=== PATIENT | female | born 1945 | race Caucasian/White ===

== ENCOUNTER 2018-01-31 13:10 | Inpatient (IN) | payer OTHER, MEDICAID ==
[~2018-01-31] VITALS: Ht 167.6 cm; Wt 58.5 kg
[2018-01-31 13:13] VITALS: BP 115/50
[2018-01-31] MEDS ORDERED: NACL 0.9% 1,000 ML IV SCH (14:18)
[2018-01-31] MEDS ORDERED: KETOROLAC 30 MG/ML VIAL IVP ONE (14:20)
[2018-01-31 15:10] LABS: BASOPHILS # (AUTO) 0.1 K/uL (0.00-0.22); BASOPHILS % (AUTO) 0.6 % (0.0-2.0); EOSINOPHILS # (AUTO) 0.3 K/uL (0-0.4); EOSINOPHILS % (AUTO) 3.1 % (0.0-4.0); HEMATOCRIT 43.4 % (36-48); LYMPHOCYTES # (AUTO) 1.4 K/uL (2.5-16.5); LYMPHOCYTES % (AUTO) 14.6 % (20.5-51.1); MEAN CORPUSCULAR HEMOGLOBIN 27 pg (27-31); MEAN CORPUSCULAR HGB CONC 32 g/dL (33-37); MONOCYTES # (AUTO) 0.6 K/uL (0.8-1.0); MONOCYTES % (AUTO) 5.7 % (1.7-9.3); NEUTROPHILS # (AUTO) 7.4 K/uL (1.8-7.7); PLATELET COUNT (AUTO) 208 K/uL (140-450); RED BLOOD CELL COUNT(AUTO) 5.23 MIL/uL (4.20-5.40); RED CELL DISTRIBUTION WIDTH 15.4 % (11.6-13.7); WHITE BLOOD COUNT (AUTO) 9.7 K/uL (4.8-10.8)
[2018-01-31 15:18] LABS: ANION GAP 15.4 (8-16); CARBON DIOXIDE 28.9 mmol/L (21-32); CHLORIDE 97 mmol/L (98-107); CREATININE 0.8 mg/dL (0.6-1.3); GLUCOSE 100 mg/dL (74-106); POTASSIUM 4.3 mmol/L (3.5-5.1); SODIUM SERUM 137 mmol/L (136-145); UREA NITROGEN, BLOOD 15 mg/dL (7-18)
[2018-01-31 15:25] LABS: ALBUMIN 3.6 g/dL (3.4-5.0); ASPARTATE AMINOTRANSFERASE 21 U/L (15-37); TOTAL BILIRUBIN 0.6 mg/dL (0.0-1.0)
[2018-01-31] MEDS ORDERED: LEVOFLOXACIN 500 MG/D5W PREMIX 100 ML IV ONE (15:25)
[2018-01-31 15:38] LABS: PROTHROMBIN TIME 9.8 secs (10.8-13.4)
[2018-01-31 15:42] LABS: BILIRUBIN,URINE NEGATIVE (NEGATIVE); BLOOD, URINE 1+ (NEGATIVE); COLOR,URINE YELLOW (YELLOW); LEUKOCYTE ESTERASE ,URINE 3+ (NEGATIVE); NITRITE, URINE POSITIVE (NEGATIVE); PH,URINE 6.5 (5.0-9.0); UGLUCOSE NEGATIVE (NEGATIVE)
[2018-01-31 15:44] LABS: APPEARANCE,URINE CLOUDY (CLEAR)
[2018-01-31 15:50] LABS: RBC,URINE 3-10 (FEW) /HPF (0-5)
[2018-01-31 15:51] LABS: WBC,URINE TOO MANY TO COUNT /HPF (0-5)
[2018-01-31] MEDS ORDERED: DOCUSATE SODIUM 100 MG GELCAP PO PRN (16:10)
[2018-01-31] MEDS ORDERED: ACETAMINOPHEN 325 MG TAB PO PRN (16:10)
[2018-01-31] MEDS ORDERED: HYDROcodone/APAP 5/325 MG 1 TAB TAB PO PRN (16:10)
[2018-01-31] MEDS ORDERED: ONDANSETRON 4 MG/2 ML VIAL IM/IVP PRN (16:10)
[2018-01-31] MEDS ORDERED: OSELTAMIVIR PHOSPHATE 75 MG CAP PO SCH ×2 (16:30→17:00)
[2018-01-31 16:45] VITALS: BP 101/41
[2018-01-31] MEDS ORDERED: TIZA4CAP PO (16:52)
[2018-01-31] MEDS ORDERED: DIT5 PO (16:52)
[2018-01-31] MEDS ORDERED: SYN.05 PO ×2 (16:52→17:52)
[2018-01-31] MEDS ORDERED: BACL10TA4 PO (16:52)
[2018-01-31] MEDS ORDERED: MAGN241.1 PO (16:52)
[2018-01-31] MEDS ORDERED: ROPI2TER PO (16:52)
[2018-01-31] MEDS ORDERED: OSC500 PO (16:52)
[2018-01-31] MEDS ORDERED: [UNRECOGNIZED DRUG - CODE] PO (16:52)
[2018-01-31] MEDS ORDERED: ALEN70TA52 PO (16:52)
[2018-01-31] MEDS ORDERED: FLUO10CA21 PO (16:52)
[2018-01-31] MEDS ORDERED: RIVA20TA PO (16:52)
[2018-01-31] MEDS ORDERED: PENT400T19 PO (16:52)
[2018-01-31 17:03] LABS: MAGNESIUM 1.7 mg/dL (1.8-2.4); PHOSPHORUS 1.9 mg/dL (2.5-4.9); THYROID STIMULATING HORMONE 2.19 uIU/mL (0.34-3.74)
[2018-01-31] MEDS: NACL 0.9% 1,000 ML IV SCH (17:27)
[2018-01-31] MEDS ORDERED: MULT-1328 PO (17:52)
[2018-01-31 18:41] VITALS: BP 100/44
[2018-01-31] MEDS ORDERED: OXYBUTYNIN 5 MG TAB PO PRN (19:00)
[2018-01-31] MEDS ORDERED: SODIUM PHOS / POTASSIUM PHOS 1 PKT PDR PO SCH (20:00)
[2018-01-31] MEDS ORDERED: MAGNESIUM OXIDE 400 MG TAB PO SCH (20:00)
[2018-01-31] MEDS: tiZANidine 4 MG TAB PO SCH (21:00)
[2018-01-31] MEDS: rOPINIRole 1 MG TAB PO SCH (21:00)
[2018-01-31] MEDS: CLINDAMYCIN PHOS 600MG/D5W PM 50 ML IV SCH (21:52)
[2018-01-31] MEDS: LORazepam 2 MG/ML VIAL IM/IVP PRN (22:15)
[2018-02-01] VITALS: BP 102/46
[2018-02-01] MEDS: CLINDAMYCIN PHOS 600MG/D5W PM 50 ML IV SCH ×3 (06:10→20:33)
[2018-02-01] MEDS: LEVOTHYROXINE 0.05 MG TAB PO SCH (06:15)
[2018-02-01] MEDS ORDERED: ALENDRONATE SODIUM 70 MG TAB PO SCH (06:30)
[2018-02-01 07:15] LABS: BASOPHILS % (AUTO) 0.5 % (0.0-2.0); EOSINOPHILS # (AUTO) 0.3 K/uL (0-0.4); EOSINOPHILS % (AUTO) 3.5 % (0.0-4.0); HEMATOCRIT 38.7 % (36-48); HEMOGLOBIN 12.3 g/dL (12.0-16.0); LYMPHOCYTES % (AUTO) 24.9 % (20.5-51.1); MEAN CORPUSCULAR HEMOGLOBIN 26 pg (27-31); MEAN CORPUSCULAR HGB CONC 32 g/dL (33-37); MONOCYTES # (AUTO) 0.8 K/uL (0.8-1.0); MONOCYTES % (AUTO) 10.2 % (1.7-9.3); NEUTROPHILS # (AUTO) 4.8 K/uL (1.8-7.7); NEUTROPHILS % (AUTO) 60.9 % (42.2-75.2); PLATELET COUNT (AUTO) 159 K/uL (140-450); RED BLOOD CELL COUNT(AUTO) 4.66 MIL/uL (4.20-5.40); RED CELL DISTRIBUTION WIDTH 14.6 % (11.6-13.7); WHITE BLOOD COUNT (AUTO) 7.9 K/uL (4.8-10.8)
[2018-02-01 07:21] LABS: CHOL/HDL RATIO 3.3 (1-4.5)
[2018-02-01 07:26] LABS: MAGNESIUM 2.2 mg/dL (1.8-2.4); PHOSPHORUS 2.4 mg/dL (2.5-4.9)
[2018-02-01 08:00] VITALS: BP 102/50
[2018-02-01 08:08] LABS: CARBON DIOXIDE 24.8 mmol/L (21-32); CHLORIDE 102 mmol/L (98-107); CREATININE 0.7 mg/dL (0.6-1.3); GLUCOSE 115 mg/dL (74-106); POTASSIUM 3.8 mmol/L (3.5-5.1); SODIUM SERUM 138 mmol/L (136-145); UREA NITROGEN, BLOOD 14 mg/dL (7-18)
[2018-02-01] MEDS ORDERED: MODAFINIL 200 MG PO SCH (09:00)
[2018-02-01] MEDS: FLUoxetine 10 MG CAP PO SCH (09:03)
[2018-02-01] MEDS: MULTIVITAMIN/MINERALS 1 TAB PO SCH (09:03)
[2018-02-01] MEDS: CALCIUM CARBONATE 500 MG TAB PO SCH (09:04)
[2018-02-01] MEDS: PENTOXIFYLLINE 400 MG TABER PO SCH ×3 (09:04→18:38)
[2018-02-01] MEDS: RIVAROXABAN 10 MG TAB PO SCH (09:08)
[2018-02-01 16:00] VITALS: BP 123/47
[2018-02-01] MEDS: NACL 0.9% 1,000 ML IV SCH (16:09)
[2018-02-01] MEDS: tiZANidine 4 MG TAB PO SCH (20:32)
[2018-02-01] MEDS: rOPINIRole 1 MG TAB PO SCH (20:33)
[2018-02-01] MEDS: LORazepam 2 MG/ML VIAL IM/IVP PRN (21:15)
[2018-02-01 23:52] VITALS: BP 122/41
[2018-02-02] MEDS: CLINDAMYCIN PHOS 600MG/D5W PM 50 ML IV SCH ×3 (05:34→20:55)
[2018-02-02] MEDS: NACL 0.9% 1,000 ML IV SCH (05:34)
[2018-02-02] MEDS: LEVOTHYROXINE 0.05 MG TAB PO SCH (05:34)
[2018-02-02 08:00] VITALS: BP 123/57
[2018-02-02] MEDS: PENTOXIFYLLINE 400 MG TABER PO SCH ×3 (09:01→17:11)
[2018-02-02] MEDS: CALCIUM CARBONATE 500 MG TAB PO SCH (09:01)
[2018-02-02] MEDS: FLUoxetine 10 MG CAP PO SCH (09:01)
[2018-02-02] MEDS: MULTIVITAMIN/MINERALS 1 TAB PO SCH (09:01)
[2018-02-02] MEDS: RIVAROXABAN 10 MG TAB PO SCH (09:08)
[2018-02-02] MEDS ORDERED: SODIUM PHOS / POTASSIUM PHOS 1 PKT PDR PO SCH (09:30)
[2018-02-02 12:00] LABS: BASOPHILS % (AUTO) 0.5 % (0.0-2.0); EOSINOPHILS # (AUTO) 0.7 K/uL (0-0.4); EOSINOPHILS % (AUTO) 8.2 % (0.0-4.0); HEMATOCRIT 39.1 % (36-48); HEMOGLOBIN 12.5 g/dL (12.0-16.0); LYMPHOCYTES # (AUTO) 1.9 K/uL (2.5-16.5); LYMPHOCYTES % (AUTO) 20.8 % (20.5-51.1); MEAN CORPUSCULAR HEMOGLOBIN 27 pg (27-31); MEAN CORPUSCULAR HGB CONC 32 g/dL (33-37); MEAN CORPUSCULAR VOLUME 83.6 fL (80-94); MONOCYTES % (AUTO) 11.6 % (1.7-9.3); NEUTROPHILS # (AUTO) 5.3 K/uL (1.8-7.7); NEUTROPHILS % (AUTO) 58.9 % (42.2-75.2); PLATELET COUNT (AUTO) 191 K/uL (140-450); RED BLOOD CELL COUNT(AUTO) 4.68 MIL/uL (4.20-5.40); RED CELL DISTRIBUTION WIDTH 14.8 % (11.6-13.7)
[2018-02-02 13:11] LABS: ANION GAP 13.3 (8-16); CARBON DIOXIDE 26.6 mmol/L (21-32); CHLORIDE 100 mmol/L (98-107); CREATININE 0.6 mg/dL (0.6-1.3); GLUCOSE 91 mg/dL (74-106); POTASSIUM 3.9 mmol/L (3.5-5.1); SODIUM SERUM 136 mmol/L (136-145); UREA NITROGEN, BLOOD 9 mg/dL (7-18)
[2018-02-02] MEDS: BENZOCAINE/MENTHOL 1 LOZ MM PRN (14:59)
[2018-02-02 16:00] VITALS: BP 115/46
[2018-02-02] MEDS: rOPINIRole 1 MG TAB PO SCH (21:01)
[2018-02-02] MEDS: tiZANidine 4 MG TAB PO SCH (21:01)
[2018-02-02] MEDS: LORazepam 2 MG/ML VIAL IM/IVP PRN (22:09)
[2018-02-03 00:44] VITALS: BP 100/46
[2018-02-03] MEDS: CLINDAMYCIN PHOS 600MG/D5W PM 50 ML IV SCH ×2 (05:27→06:08)
[2018-02-03] MEDS: LEVOTHYROXINE 0.05 MG TAB PO SCH (06:08)
[2018-02-03 06:35] LABS: BASOPHILS # (AUTO) 0.1 K/uL (0.00-0.22); BASOPHILS % (AUTO) 0.7 % (0.0-2.0); EOSINOPHILS # (AUTO) 0.9 K/uL (0-0.4); EOSINOPHILS % (AUTO) 11.4 % (0.0-4.0); HEMOGLOBIN 11.4 g/dL (12.0-16.0); LYMPHOCYTES # (AUTO) 2.3 K/uL (2.5-16.5); LYMPHOCYTES % (AUTO) 30.6 % (20.5-51.1); MEAN CORPUSCULAR HEMOGLOBIN 26 pg (27-31); MEAN CORPUSCULAR HGB CONC 32 g/dL (33-37); MEAN CORPUSCULAR VOLUME 82.5 fL (80-94); MONOCYTES # (AUTO) 0.7 K/uL (0.8-1.0); MONOCYTES % (AUTO) 9.2 % (1.7-9.3); NEUTROPHILS # (AUTO) 3.6 K/uL (1.8-7.7); NEUTROPHILS % (AUTO) 48.1 % (42.2-75.2); PLATELET COUNT (AUTO) 184 K/uL (140-450); RED BLOOD CELL COUNT(AUTO) 4.36 MIL/uL (4.20-5.40); RED CELL DISTRIBUTION WIDTH 14.9 % (11.6-13.7); WHITE BLOOD COUNT (AUTO) 7.5 K/uL (4.8-10.8)
[2018-02-03 06:53] LABS: ANION GAP 8.8 (8-16); CARBON DIOXIDE 28.7 mmol/L (21-32); CHLORIDE 104 mmol/L (98-107); CREATININE 0.5 mg/dL (0.6-1.3); GLUCOSE 104 mg/dL (74-106); POTASSIUM 3.5 mmol/L (3.5-5.1); SODIUM SERUM 138 mmol/L (136-145); UREA NITROGEN, BLOOD 11 mg/dL (7-18)
[2018-02-03 06:57] LABS: MAGNESIUM 1.9 mg/dL (1.8-2.4); PHOSPHORUS 2.9 mg/dL (2.5-4.9)
[2018-02-03 08:00] VITALS: BP 125/51
[2018-02-03] MEDS: FLUoxetine 10 MG CAP PO SCH (09:15)
[2018-02-03] MEDS: PENTOXIFYLLINE 400 MG TABER PO SCH ×3 (09:16→17:22)
[2018-02-03] MEDS: CALCIUM CARBONATE 500 MG TAB PO SCH (09:16)
[2018-02-03] MEDS: BACLOFEN 10 MG TAB PO SCH ×3 (09:16→17:22)
[2018-02-03] MEDS: MULTIVITAMIN/MINERALS 1 TAB PO SCH (09:16)
[2018-02-03] MEDS: RIVAROXABAN 10 MG TAB PO SCH (09:19)
[2018-02-03] MEDS: MEROPENEM 500 MG in NACL 0.9% 50 ML IV SCH ×2 (13:19→20:05)
[2018-02-03] MEDS: NACL 0.9% 1,000 ML IV SCH (14:38)
[2018-02-03 16:00] VITALS: BP 132/48
[2018-02-03] MEDS: tiZANidine 4 MG TAB PO SCH (20:09)
[2018-02-03] MEDS: rOPINIRole 1 MG TAB PO SCH (20:09)
[2018-02-03] MEDS: BENZOCAINE/MENTHOL 1 LOZ MM PRN (20:12)
[2018-02-04] VITALS: BP 93/36
[2018-02-04] MEDS: MEROPENEM 500 MG in NACL 0.9% 50 ML IV SCH ×2 (05:00→12:11)
[2018-02-04] MEDS: LEVOTHYROXINE 0.05 MG TAB PO SCH (06:35)
[2018-02-04 07:43] LABS: ANION GAP 10.8 (8-16); BASOPHILS # (AUTO) 0.1 K/uL (0.00-0.22); BASOPHILS % (AUTO) 1.1 % (0.0-2.0); CARBON DIOXIDE 27.9 mmol/L (21-32); CHLORIDE 103 mmol/L (98-107); CREATININE 0.5 mg/dL (0.6-1.3); EOSINOPHILS # (AUTO) 0.7 K/uL (0-0.4); EOSINOPHILS % (AUTO) 9.1 % (0.0-4.0); GLUCOSE 104 mg/dL (74-106); HEMATOCRIT 36.9 % (36-48); HEMOGLOBIN 11.8 g/dL (12.0-16.0); LYMPHOCYTES # (AUTO) 2.2 K/uL (2.5-16.5); LYMPHOCYTES % (AUTO) 29.8 % (20.5-51.1); MEAN CORPUSCULAR HEMOGLOBIN 26 pg (27-31); MEAN CORPUSCULAR HGB CONC 32 g/dL (33-37); MEAN CORPUSCULAR VOLUME 82.3 fL (80-94); MONOCYTES # (AUTO) 0.8 K/uL (0.8-1.0); MONOCYTES % (AUTO) 10.7 % (1.7-9.3); NEUTROPHILS # (AUTO) 3.7 K/uL (1.8-7.7); NEUTROPHILS % (AUTO) 49.3 % (42.2-75.2); PLATELET COUNT (AUTO) 213 K/uL (140-450); POTASSIUM 3.7 mmol/L (3.5-5.1); RED BLOOD CELL COUNT(AUTO) 4.48 MIL/uL (4.20-5.40); RED CELL DISTRIBUTION WIDTH 14.4 % (11.6-13.7); SODIUM SERUM 138 mmol/L (136-145); UREA NITROGEN, BLOOD 8 mg/dL (7-18); WHITE BLOOD COUNT (AUTO) 7.5 K/uL (4.8-10.8)
[2018-02-04 07:49] LABS: MAGNESIUM 1.9 mg/dL (1.8-2.4); PHOSPHORUS 2.4 mg/dL (2.5-4.9)
[2018-02-04 08:00] VITALS: BP 131/56
[2018-02-04] MEDS: MULTIVITAMIN/MINERALS 1 TAB PO SCH (08:49)
[2018-02-04] MEDS: FLUoxetine 10 MG CAP PO SCH (08:49)
[2018-02-04] MEDS: BACLOFEN 10 MG TAB PO SCH ×3 (08:49→16:33)
[2018-02-04] MEDS: CALCIUM CARBONATE 500 MG TAB PO SCH (08:50)
[2018-02-04] MEDS: PENTOXIFYLLINE 400 MG TABER PO SCH ×3 (08:50→16:33)
[2018-02-04] MEDS: RIVAROXABAN 10 MG TAB PO SCH (08:57)
[2018-02-04] MEDS ORDERED: SODIUM PHOS / POTASSIUM PHOS 1 PKT PDR PO SCH (09:00)
[2018-02-04] MEDS ORDERED: MERO500P2 IV (09:26)
[2018-02-04] MEDS ORDERED: LACT10CA1 PO (09:26)
[2018-02-04] MEDS ORDERED: ERTA1VIA2 IJ (11:23)
[2018-02-04] MEDS ORDERED: [UNRECOGNIZED DRUG - CODE] PO (12:32)
[2018-02-04 16:00] VITALS: BP 136/67
== END 2018-02-04 18:10 | DRG 178 ==
LOC: MED 13:10 → MTU 16:14
PROVIDERS: ADMIT General Practice; ATTEND General Practice
DX: J69.0 Pneumonitis due to inhalation of food and vomit (principal); N39.0 Urinary tract infection, site not specified; G35 Multiple sclerosis; E83.42 Hypomagnesemia; E83.39 Other disorders of phosphorus metabolism; M34.9 Systemic sclerosis, unspecified; N31.9 Neuromuscular dysfunction of bladder, unspecified; R13.10 Dysphagia, unspecified; B96.4 Proteus (mirabilis) (morganii) as the cause of diseases classified elsewhere; F03.90 Unspecified dementia, unspecified severity, without behavioral disturbance, psychotic disturbance, mood disturbance, and anxiety; F32.9 Major depressive disorder, single episode, unspecified; M81.0 Age-related osteoporosis without current pathological fracture; E03.9 Hypothyroidism, unspecified; E78.5 Hyperlipidemia, unspecified; G47.00 Insomnia, unspecified; I73.00 Raynaud's syndrome without gangrene; G25.81 Restless legs syndrome; Z16.12 Extended spectrum beta lactamase (ESBL) resistance; Z80.1 Family history of malignant neoplasm of trachea, bronchus and lung; Z86.718 Personal history of other venous thrombosis and embolism; Z90.710 Acquired absence of both cervix and uterus; Z83.3 Family history of diabetes mellitus; Z87.891 Personal history of nicotine dependence
CPT/HCPCS: 36415; 71045; 80048; 80053; 81001; 82550; 83036; 83605; 83690; 83735; 83880; 84100; 84134; 84443; 85025; 85610; 85730; 87040; 87070; 87081; 87086; 87186; 87205; 87804; 92610; 93005; 93970; 96361; 96365; 96375; 97110; 97530; 99285; J0696; J1885; J1956; J2060; J2185; J3490; J7030; J7060; Q0092; Q0163